=== PATIENT | male | born 1975 | race African-American/Black ===

== ENCOUNTER 2017-03-05 07:14 | Inpatient (IN) ==
[2017-03-05] MEDS ORDERED: CARDIZEM ONE ×2 (07:31→07:44)
[2017-03-05] MEDS ORDERED: CARDIZEM IV ONE ×2 (07:32→07:36)
[2017-03-05] MEDS ORDERED: NS 1,000 ML ONE ×2 (07:36→09:38)
[2017-03-05] MEDS ORDERED: NS 1,000 ML IV ONE ×2 (07:37→09:42)
[2017-03-05] MEDS ORDERED: CARDIZEM 100 MG/NS 100 MG/100 ML IVPB IV SCH ×5 (07:45→09:18)
[2017-03-05 08:13] LABS: MANUAL DIFF NEEDED? NO
[2017-03-05 08:16] LABS: AGAP 12; ALKALINE PHOSPHATASE 46 U/L (32-122); BASO% 0.3 % (0.0-0.8); BUN 11 mg/dL (8-22); CALCIUM 8.6 mg/dL (8.8-10.2); CHLORIDE 102 mmol/L (98-107); COSMO 278; EOS# 0.28 X1000 (0.0-0.7); GOT 23 U/L (10-34); GPT 20 U/L (10-44); HEMATOCRIT 40.9 % (42.0-52.0); HEMOGLOBIN 14.2 g/dL (14.0-18.0); IMM GRAN# 0.01 X1000 (0.0-0.04); IMM GRAN% 0.1 % (0.0-0.5); LYMPH# 2.28 X1000 (1.2-3.4); LYMPH% 32.5 % (20.5-51.1); MCH 30.6 PG (27-31); MCHC 34.7 g/dL (33-37); MCV 88.1 FL (81-99); MONO# 0.56 X1000 (0.11-0.59); MPV 11.1 FL (7.4-10.4); NEUT% 55.1 % (42.2-75.2); PLT 139 X1000 (130-400); POTASSIUM 3.6 mmol/L (3.5-5.1); RBC 4.64 XMIL (4.7-6.1); SODIUM 138 mmol/L (136-145); TCO2 25 mmol/L (25-35); TOTAL PROTEIN 6.5 g/dL (6.3-8.3)
--- NOTE | 2017-03-05 08:16 | EKG Report ---
Test Performed on : 03/05/2017 07:22:48 AM Test Reason : tacycardia Blood Pressure : / mmHG Vent. Rate : 153 BPM Atrial Rate : 122 BPM P-R Int : 000 ms QRS Dur : 076 ms QT Int : 284 ms P-R-T Axes : 000 058 035 degrees QTc Int : 453 ms Atrial fibrillation. with rapid ventricular response. Nonspecific T wave abnormality Abnormal ECG When compared with ECG of 05-MAR-2017 07:22, (Unconfirmed) Previous ECG has undetermined rhythm, needs review Unconfirmed Result
--- NOTE | 2017-03-05 08:51 | EKG Report ---
Test Performed on : 03/05/2017 07:58:22 AM Test Reason : afib Blood Pressure : / mmHG Vent. Rate : 156 BPM Atrial Rate : 029 BPM P-R Int : 000 ms QRS Dur : 070 ms QT Int : 290 ms P-R-T Axes : 000 061 061 degrees QTc Int : 467 ms Atrial fibrillation. with rapid ventricular response. with premature ventricular or aberrantly condu cted complexes. Abnormal ECG When compared with ECG of 05-MAR-2017 07:23, (Unconfirmed) Previous ECG has undetermined rhythm, needs review Unconfirmed Result
[2017-03-05 08:55] LABS: URINE MICROSCOPIC NEEDED? NO; URINE SOURCE CLEAN CATCH
[2017-03-05] MEDS ORDERED: VERSED ONE ×2 (08:55→08:56)
[2017-03-05 09:05] LABS: BILIRUBIN URINE NEGATIVE (NEGATIVE); BLOOD URINE NEGATIVE (NEGATIVE); CLARITY CLEAR (CLEAR); COLOR YELLOW; GLUCOSE URINE NEGATIVE (NEGATIVE); LEUKOCYTES URINE NEGATIVE (NEGATIVE); NITRITE URINE NEGATIVE (NEGATIVE); PH URINE 6.5; PROTEIN URINE NEGATIVE (NEGATIVE); UROBILINOGEN URINE NORMAL
[2017-03-05 09:08] LABS: UR AMPHETAMINES QUAL NONE DETECTED (NONE DETECT); UR BARBITUATES QUAL NONE DETECTED (NONE DETECT); UR BENZODIAZEPIN QUAL NONE DETECTED (NONE DETECT); UR COCAINE QUAL NONE DETECTED (NONE DETECT); UR MDMA QUAL NONE DETECTED (NONE DETECT); UR METHADONE QUAL NONE DETECTED (NONE DETECT); UR METHAMPHETAMINE QUAL NONE DETECTED (NONE DETECT); UR OPIATES QUAL NONE DETECTED (NONE DETECT); UR OXYCODONE QUAL NONE DETECTED (NONE DETECT)
[2017-03-05 09:09] LABS: UR CANNABINOIDS QUAL NONE DETECTED (NONE DETECT); UR PCP QUAL NONE DETECTED (NONE DETECT); UR TCA QUAL NONE DETECTED (NONE DETECT)
[2017-03-05] MEDS ORDERED: CARDIZEM PO ONE (09:19)
[2017-03-05] MEDS ORDERED: LANOXIN PO ONE (09:23)
[2017-03-05] MEDS ORDERED: LANOXIN ONE (09:45)
--- NOTE | 2017-03-05 09:49 | EKG Report ---
Test Performed on : 03/05/2017 09:01:16 AM Test Reason : ROUTINE Blood Pressure : / mmHG Vent. Rate : 071 BPM Atrial Rate : 071 BPM P-R Int : 148 ms QRS Dur : 080 ms QT Int : 370 ms P-R-T Axes : 056 065 033 degrees QTc Int : 402 ms Normal sinus rhythm. Normal ECG When compared with ECG of 05-MAR-2017 07:58, (Unconfirmed) Sinus rhythm. has replaced Atrial fibrillation. Vent. rate has decreased BY 85 BPM Nonspecific T wave abnormality no longer evident in Lateral leads Unconfirmed Result
[2017-03-05] MEDS ORDERED: MAGNESIUM SULFATE 2 GM/S.W.I. 2 GM/50 ML IVPB IV ONE (11:07)
--- NOTE | 2017-03-05 14:32 | HISTORY AND PHYSICAL ---
PRIMARY CARE PHYSICIAN: None. CHIEF COMPLAINT: Substernal chest pain, shortness of breath that began around 6:30 a.m. this morning. HISTORY OF PRESENT ILLNESS: On arrival to the emergency room he was noted on his EKG to have atrial fibrillation with RVR at 153 new onset. While in the emergency room he was given Cardizem 20 mg IV x1. Approximately 4 minutes later he was given Cardizem 25 mg IV x1. He was started on a Cardizem drip and was maxed out on his dosage with it with little change. ER physician consulted Dr. Jade, Cardiology and instructed him to shock the patient back into rhythm. Per ER documentation at 0857 ER physician gave 2 mg of Versed at 0858 and 2 mg more at 0900 at 9:02 he gave another mg of Versed at 9:03. The patient was shocked at 1001 and converted into normal sinus rhythm. EKG was obtained that showed normal sinus rhythm at 71 and he is being admitted for further evaluation and treatment. PAST MEDICAL HISTORY: Of asthma. PAST SURGICAL HISTORY: None. FAMILY HISTORY: His mom had congestive heart failure, dad had a CVA and an IN. SOCIAL HISTORY: He currently lives with family. Denies any tobacco, alcohol, or illicit drug use. ALLERGIES: He has no known drug allergies. HOME MEDICATIONS: He does not take any medications at home on a routine basis. LABORATORY DATA: Showed a white blood cell count of 7.01, hemoglobin 14.2, hematocrit 40.9, platelets 139,000. Sodium of 138, potassium 3.6, chloride 102, CO2 25, BUN of 11, creatinine 0.8, glucose 148, magnesium was 1.5. Urinalysis was clear. Urine drug screen showed none detected. EKG on arrival showed atrial fibrillation with RVR at 153. Approximately 1 hour later he had a repeat EKG that showed atrial fibrillation with RVR at 156. At 9:34 he is noted to have an EKG that shows normal sinus rhythm at 71. REVIEW OF SYSTEMS: He denied any fever, chills, blurred vision, dizziness. Was positive for some substernal chest pain that was nonradiating, shortness of breath. Denied any cough, abdominal pain, constipation, diarrhea, burning or hurting with urination. PHYSICAL EXAMINATION: VITAL SIGNS: On arrival he had a pulse of 150, respirations 18, blood pressure was 151/85, he was saturating 97% on room air. Currently he has temperature of 97.3 degrees, pulse 79, respirations 18, blood pressure is 118/71 saturating 100% on 2 L via nasal cannula. GENERAL: This is a 41-year-old male who is lying in the bed and answers all questions appropriately. HEENT: Normocephalic and atraumatic. Pupils are equal, round, reactive to light. Extraocular movements are intact. The oropharynx and nares are clear. NECK: Supple. LUNGS: Clear to auscultation bilaterally with equal lung expansion and chest wall movement. HEART: Currently with regular rate and rhythm. No murmurs, rubs, or gallops. ABDOMEN: Soft, nontender, nondistended. Bowel sounds are present x4 quadrants. EXTREMITIES: No clubbing, cyanosis or edema. NEUROLOGICAL: The cranial nerves 2-12 are grossly intact. ASSESSMENT: 1. New onset atrial fibrillation with rapid ventricular response now currently in normal sinus rhythm after cardioversion. 2. Hypertension. 3. Hypomagnesemia. PLAN: He was admitted to the medical unit. Placed on telemetry. O2 per protocol. Healthy heart diet. We will check an echocardiogram in the a.m. Since he has had cardioversion today we will check that tomorrow morning. We will give him 2 g of magnesium sulfate IV x1, Cardizem 30 mg p.o. q.6 hours, normal saline at 75 mL an hour and will recheck a BMP, CBC and a magnesium in the a.m. We will assist patient in obtaining a primary care physician and cardiology followup at discharge since he is not established with anyone at this time. Dictated by SAI Guadarrama for Julian Pacheco MD cc: SAI Guadarrama MD
[2017-03-05] MEDS: CARDIZEM PO SCH ×2 (16:15→21:58)
[2017-03-06] MEDS: CARDIZEM PO SCH ×2 (04:33→10:43)
[2017-03-06 05:58] LABS: MANUAL DIFF NEEDED? NO
[2017-03-06 06:07] LABS: BASO% 0.2 % (0.0-0.8); EOS% 3.2 % (0.0-10.0); HEMATOCRIT 37.8 % (42.0-52.0); HEMOGLOBIN 12.8 g/dL (14.0-18.0); IMM GRAN# 0.02 X1000 (0.0-0.04); IMM GRAN% 0.3 % (0.0-0.5); LYMPH# 2.23 X1000 (1.2-3.4); LYMPH% 35.3 % (20.5-51.1); MCH 30.3 PG (27-31); MCHC 33.9 g/dL (33-37); MCV 89.4 FL (81-99); MONO# 0.43 X1000 (0.11-0.59); MONO% 6.8 % (1.7-9.3); MPV 10.7 FL (7.4-10.4); NEUT% 54.2 % (42.2-75.2); PLT 148 X1000 (130-400); RBC 4.23 XMIL (4.7-6.1)
[2017-03-06 06:29] LABS: AGAP 11; BUN 12 mg/dL (8-22); CALCIUM 8.5 mg/dL (8.8-10.2); CHLORIDE 103 mmol/L (98-107); COSMO 276; MAGNESIUM 1.9 mg/dL (1.5-2.7); POTASSIUM 3.9 mmol/L (3.5-5.1); SODIUM 137 mmol/L (136-145); TCO2 23 mmol/L (25-35)
[2017-03-06 06:57] LABS: CK INDEX 0.9 (0.0-2.5); CK-MB 2.56 ng/mL (0.0-5.0)
[2017-03-06 10:56] VITALS: BP 141/87
--- NOTE | 2017-03-06 21:28 | ECHO REPORT ---
ORDER DATE: 03/06/2017 MEASUREMENTS: Left ventricular end-diastolic diameter 4.8, end-systolic diameter 3.0, septal thickness 1.0, posterior wall thickness 1.0, left atrium 3.4, aortic root 2.9. SUMMARY: 1. Adequate quality study. 2. Aortic, mitral, tricuspid and pulmonic valves all without evidence of structural abnormality. The aortic valve is trileaflet and opens normally on 2-dimensional images with a peak gradient less than 10 mmHg. There is trace mitral regurgitation, mild tricuspid regurgitation and mild pulmonic insufficiency. The estimated systolic PA pressure by Doppler is 30-35 mmHg. The aortic root is normal in size. 3. Normal left ventricular dimensions evident. Estimated left ejection fraction is 60%. No regional wall motion abnormalities are evident. Left atrium, right atrium, and right ventricle are normal in size with normal right ventricular systolic function. 4. No pericardial effusion. 5. Appearance of inferior vena cava suggests normal central venous pressure. 6. Sinus rhythm during study. CONCLUSIONS: 1. Mild tricuspid regurgitation. Estimated systolic PA pressure 30 to 35 mmHg. 2. Normal left ventricular function without wall motion abnormality evident. cc: MD Kianna Pretty CRNP
--- NOTE | 2017-03-07 05:39 | DISCHARGE SUMMARY ---
ADMISSION DATE: 03/05/2017 DISCHARGE DATE: 03/06/2017 PRIMARY CARE PHYSICIAN: None. SPOOL SORTER: Will be Dr. Figueroa. ADMISSION DIAGNOSES: 1. Atrial fibrillation, with RVR, new-onset. 2. Hypertension. 3. Hypomagnesemia. DISCHARGE DIAGNOSES: 1. Atrial fibrillation, with RVR, new-onset, now in normal sinus rhythm after cardioversion. 2. Hypertension. 3. Hypomagnesemia, resolved. SUMMARY OF FINDINGS: This is a 41-year-old male who presented to the emergency room with complaints of some substernal chest pain and shortness of breath that began around 6:30 a.m. yesterday morning. When he arrived to the emergency room, an EKG was done, and he was noted to be in atrial fibrillation with RVR at 153, new-onset. Was given Cardizem 20 mg IV x1, with no change in his rate. Approximately 4 minutes later, he was given Cardizem 25 mg IV x1, and then started on a Cardizem drip. This was maxed out on the dosage, with little change in his rate. Dr. Jade, cardiology, was consulted, and instructed the ER physician to shock the patient back into rhythm. Per ER record, he was shocked after receiving Versed, into a normal sinus rhythm at 71. He was admitted, placed on Cardizem 30 mg p.o. q.6 hours. We obtained an echocardiogram. Those results are still pending at this time. He has remained rate controlled this a.m. at 79. Denies any chest pain, shortness of breath, and so it is felt that he can be safely discharged home today. He will followup in the a.m. at [address] Figueroa, cardiology. He has a Lexiscan stress test scheduled outpatient for March 09, at [facility]. DISCHARGE MEDICATIONS: He was given a prescription for Cardizem 120 mg 1 p.o. daily, #30, with 3 refills. DISCHARGE INSTRUCTIONS: We also gave him the number to the physician referral line to obtain a primary care physician of his choice. All discharge instructions were reviewed with the patient, and he verbalized understanding. DISCHARGE TIME: 35 minutes. Dictated by SAI Guadarrama for Julian Pacheco MD cc: SAI Guadarrama MD Ashish K. Basu, MD
--- NOTE | 2017-03-13 05:48 | ED EKG INTERP ---
This chart was entered by Sruthi Sandoval Scribe, acting as scribe for Donald Liu MD. EKG Interpretation - EKG Time of EKG reading by physician:: 07:22 EKG Read and Signed by:: Donald Liu EKG Interpretation (*Must complete 3 of following elements*): Abnormal Rate: 153 Rhythm: atrial fibrillation with rapid ventricular response Comments: nonspecific T wave abnormality - EKG # 2 Time of EKG reading by physician:: 07:58 EKG Read and Signed by:: Donald Liu EKG Interpretation (*Must complete 3 of following elements*): Abnormal (rhythm - atrial fibrillation with rapid ventricular response with premature ventricular or aberrantly conducted complexes) Rate: 156 Rhythm: atrail fib with RVR Prior EKG Comparison: unchanged from prior This chart was documented by the indicated scribe, (Sruthi Sandoval Scribe) and accurately reflects the services I performed and decisions made by me, Donald Liu MD, as attested by the provider's signature.
--- NOTE | 2017-03-13 05:51 | PROVIDER DOCUMENTATION ---
This chart was entered by Sruthi Sandoval Scribe, acting as scribe for Donald Liu MD. HPI-Chest Pain - General Chief Complaint: Chest Pain Stated Complaint: CHEST PAIN/SOB Time Seen by Provider: 03/05/17 07:32 Source: patient Allergies/Adverse Reactions: Patient Allergies Allergy/AdvReac Type Severity Reaction Status Date / Time No Known Allergies Allergy Verified 03/05/17 07:21 Home Medications: Home Medication List Medication Instructions Recorded Confirmed Last Taken Type Diltiazem HCl [Cardizem] 120 mg PO DAILY #30 tablet 03/06/17 Unknown Rx - History of Present Illness-CP Nature of Presenting Problem: Pt is 41 y/o M presents to the ED with chest pain. Pt states pain started at 0630 this am. Pt states SOB. Pt denies radiation of pain. Location: reports: central Chest Pain Radiation: reports: no radiation Quality of Pain: reports: throbbing Severity in ED: mild Onset/Duration: this morning (0630) Timing: still present, intermittent Context/Activities at Onset: reports: light activity Modifying Factors: improves with: nothing Associated Symptoms: reports: shortness of breath. denies: abdominal pain, back pain, diaphoresis, dizziness, edema, fatigue, fever/chills, headache, heartburn, nausea, rash, swelling/lump in chest, syncope, vomiting, weakness Nitro Today/Relief: no nitro taken today Aspirin Treatment Today: no aspirin today Prior Chest Pain/Cardiac Workup: reports: no prior chest pain Similar Symptoms Previously?: No Recently Seen Here or By Another Healthcare Provider: No Review of Systems - Adult - REVIEW OF SYSTEMS - ADULT Constitutional: reports: no symptoms reported Eyes: reports: no symptoms reported Ears, Nose, Mouth & Throat: reports: no symptoms reported Cardiovascular: reports: chest pain, irregular heart rate (tachy). denies: heart murmur Respiratory: reports: shortness of breath. denies: cough, wheezing Gastrointestinal: reports: no symptoms reported Genitourinary: reports: no symptoms reported Musculoskeletal: reports: no symptoms reported Integumentary: reports: no symptoms reported Neurological: reports: no symptoms reported Psychiatric: reports: no symptoms reported Endocrine: reports: no symptoms reported Hematologic/Lymphatic: reports: no symptoms reported Allergic/Immunologic: reports: no symptoms reported All Other Systems: Reviewed and Negative Past History - Adult - PAST MEDICAL HISTORY-ADULT Review of Records: reports: Nursing Assessment Review, Medications Reviewed, Social history reviewed & non-contributory. Major Childhood Illnesses: reports: denies history Cardiovascular: reports: denies history Respiratory: reports: asthma Gastrointestinal: reports: denies history Obstetrical/Gynecological: reports: denies history Genitourinary: reports: denies history Musculoskeletal: reports: denies history Neurological: reports: denies history Endocrine/Immune: reports: denies history Other Conditions: reports: denies history - PRIOR SURGERIES/PROCEDURES Surgical/Procedure History: reports: none - IMMUNIZATION STATUS Childhood Immunizations: See Nurse Assessment Flu Vaccine: See Nurse Assessment - FAMILY HISTORY Family History: reviewed, not pertinent - SOCIAL HISTORY Smoking: denies Substance Use: denies Living Situation: family Physical Exam-General - PHYSICAL EXAM-ADULT Initial Vital Signs Reviewed: Yes - CONSTITUTIONAL General Appearance: appears well, alert, no apparent distress - EYES Eyes: PERRL/EOMI, pink conjunctivae - HEAD, EARS, NOSE, MOUTH & THROAT HENMT: normocephalic/atraumatic, moist mucous membranes, normal ENT inspection, TMs normal, pharynx normal - NECK Neck: non-tender, full range of motion, supple, normal inspection - RESPIRATORY Respiratory: chest non-tender, lungs clear, normal breath sounds, no pleuratic chest pain, no respiratory distress, no accessory muscle use - CARDIOVASCULAR Cardiovascular: normal peripheral pulses, no edema, no gallop, no JVD, no murmur , tachycardia - GASTROINTESTINAL (ABDOMEN) Abdominal Exam: normal bowel sounds, non tender, soft, no organomegaly, no pulsatile mass - LYMPHATIC Lymphatic: no adenopathy - MUSCULOSKELETAL Back Exam: normal inspection, no CVA tenderness, no vertebral tenderness Extremity: normal range of motion, non-tender, normal gait, normal inspection, no pedal edema, no calf tenderness, normal capillary refill - SKIN Integumentary: normal color, normal turgor, warm/dry - NEUROLOGIC Neurologic: grossly normal - PSYCHIATRIC Psych/Mental Status: normal mood/affect, oriented x 3 Progress - PLAN OF CARE/RESULTS Progress/Plan/Lab Results: Orders Category Date Time Status Admit Patient To Observation Status Routine AdmDCTranf 03/05/17 09:24 Ordered Heart Healthy Diet Diet 03/05/17 09:54 Completed BASIC METABOLIC PANEL [CHEM] Routine Lab 03/06/17 05:30 Completed BNP [PRO B-NATRIURETIC PEPTIDE] Stat Lab 03/05/17 07:45 Completed CBC WITH DIFF [HEME] Routine Lab 03/06/17 05:30 Completed CBC WITH ELECTRONIC DIFF [HEME] Stat Lab 03/05/17 07:45 Completed CMP [COMPREHENSIVE METABOLIC PANEL] [CHEM] Stat Lab 03/05/17 07:45 Completed MAGNESIUM [CHEM] Routine Lab 03/06/17 05:30 Completed MAGNESIUM [CHEM] Stat Lab 03/05/17 07:45 Completed TROPONIN T Stat Lab 03/05/17 07:45 Completed UDS [URINE DRUG SCREEN PL] Stat Lab 03/05/17 08:[address] [URINALYSIS] Stat Lab 03/05/17 08:42 Completed 0.9% Sodium Chloride Inj [Ns] 1,000 ml Med 03/05/17 07:36 Discontinued .ROUTE As Directed 0.9% Sodium Chloride Inj [Ns] 1,000 ml Med 03/05/17 09:38 Discontinued .ROUTE As Directed 0.9% Sodium Chloride Inj [Ns] 1,000 ml Med 03/05/17 09:42 Discontinued IV 75 mls/hr 0.9% Sodium Chloride Inj [Ns] 1,000 ml Med 03/05/17 07:37 Discontinued IV 999 mls/hr Digoxin [Lanoxin] Med 03/05/17 09:45 Discontinued 500 microgm .ROUTE .STK-MED ONE Digoxin [Lanoxin] Med 03/05/17 09:23 Discontinued 500 microgm PO NOW ONE Diltiazem 100 mg/Ns [Cardizem 100 mg/Ns] Med 03/05/17 07:56 Discontinued 100 mg in 100 ml IV 10 mg/hr Diltiazem 100 mg/Ns [Cardizem 100 mg/Ns] Med 03/05/17 08:13 Discontinued 100 mg in 100 ml IV 15 mg/hr Diltiazem 100 mg/Ns [Cardizem 100 mg/Ns] Med 03/05/17 07:45 Discontinued 100 mg in 100 ml IV 5 mg/hr Diltiazem 100 mg/Ns [Cardizem 100 mg/Ns] Med 03/05/17 09:18 Discontinued 100 mg in 100 ml IV 5 mg/hr Diltiazem [Cardizem] Med 03/05/17 07:32 Discontinued 20 mg IV NOW ONE Diltiazem [Cardizem] Med 03/05/17 07:31 Discontinued 25 mg .ROUTE .STK-MED ONE Diltiazem [Cardizem] Med 03/05/17 07:44 Discontinued 25 mg .ROUTE .STK-MED ONE Diltiazem [Cardizem] Med 03/05/17 07:36 Discontinued 25 mg IV NOW ONE Diltiazem [Cardizem] Med 03/05/17 09:19 Discontinued 30 mg PO NOW ONE Diltiazem [Cardizem] Med 03/05/17 16:00 Discontinued 30 mg PO Q6H Magnesium Sulfate 2 gm/S.w.i. [Magnesium Sulfate 2 gm/S Med 03/05/17 11:07 Discontinued .w.i] 2 gm in 50 ml IV NOW Midazolam [Versed] Med 03/05/17 08:55 Discontinued 5 mg .ROUTE .STK-MED ONE Midazolam [Versed] Med 03/05/17 08:56 Discontinued 5 mg .ROUTE .STK-MED ONE EKG [EKG] Stat Ther 03/05/17 07:34 Draft EKG [EKG] Stat Ther 03/05/17 08:49 Draft EKG [EKG] Stat Ther 03/05/17 09:34 Draft Echo Spec/Color Dop W/O Contra Routine Ther 03/06/17 07:00 Draft Transfer/Admit Order [TRANSFER] Routine Transfer 03/05/17 09:25 Completed Result Diagrams: 03/06/17 05:30 03/06/17 05:30 - REASSESSMENT Reassessment #1 Time Reassessed: 08:57 (Dr. Liu at bedside ) Status: other (Dr. Liu consulted with Dr. Jade about Pt and Dr. Jade stated shock the Pt back into rhythm. Dr. Liu gave 2 mg of versed at 0858 and 2 mg more at 0900 of versed. At 0902, Dr. Liu gave 1mg of versed. At 0903, Pt was shocked at 100J and cardioverted into normal sinus rhythm.) - EKG 1 Time of EKG reading by physician:: 09:01 EKG Read and Signed by:: Donald Liu EKG Interpretation (*Must complete 3 of following elements*): Normal Rate: 71 Rhythm: normal sinus rhythm Comments: normal ECG - CONSULTS/PCP/HOSPITALIST Notification #1 *Consult/PCP/Hospitalist*: Dr. Jade Time Discussed: 09:14 (Dr. Morris stated shock Pt back into rhythm) Reason/Comments: Dr. Liu consulted with Dr. Morris about Pt Consult Disposition: other #2 Consult: Dr. Pacheco Time Discussed: 09:12 Reason/Comments: Dr. Liu consulted with Dr. Pacheco about admit of Pt Consult Disposition: Admit Procedures - CARDIOVERSION/DEFIBRILLATION Procedure, Risk, Benefits and Alternatives discussed with:: Patient Consent form signed?: Yes Time-Out Verification Completed?: Yes Cardioverted/Defibrillated at:: 100 joules Post Cardioversion/Defibrillation Rate: 85 Post Cardioversion/Defibrillation Rhythm: nsr Departure - Departure Time of Disposition Decision: 09:15 DIAGNOSIS: Atrial fibrillation Qualifiers: Atrial fibrillation type: unspecified Qualified Code(s): I48.91 - Unspecified atrial fibrillation Disposition: ADMITTED INPATIENT 09 Certified Medical Emergency: Emergent Condition: Stable - Critical Care Note This patient required my direct & personal management of CC.: Yes Total Time (mins): 30 Critical Care Statement: This patient required my direct personal management to treat or rule out processes, the absence of which, could potentiallly result in sudden, clinically significant life or limb threatening deterioration. This chart was documented by the indicated scribe, (Sruthi Sandoval Scribe) and accurately reflects the services I performed and decisions made by me, Donald Liu MD, as attested by the provider's signature.
== END 2017-03-06 13:43 | disposition home or self-care (01) ==
LOC: P.ED 07:14 → P.MEDSURG 07:14 → OBSVTOIN 10:42
PROVIDERS: ATTEND Family Medicine